=== PATIENT | female | born 1995 | race Caucasian/White ===

== ENCOUNTER 2017-04-21 23:48 | Emergency (ER) | payer OTHER ==
[~2017-04-21] VITALS: Ht 172.7 cm; Wt 98.9 kg
--- NOTE | ~2017-04-21 | EKG ---
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
[2017-04-21] MEDS ORDERED: PEPCID20 MG PO (23:58)
[2017-04-21] MEDS ORDERED: IBUPROFEN 200200 M1 PO (23:58)
[2017-04-21] MEDS ORDERED: PROBIOTIC1 EAC1 PO (23:58)
[2017-04-22] MEDS ORDERED: ALLERGY MEDICAT25 MG
[2017-04-22] MEDS ORDERED: HYDROXYZINE HCL25 M1 PO (02:02)
[2017-04-22 02:23] VITALS: BP 141/87
== END 2017-04-22 02:25 | disposition home or self-care (01) ==
LOC: ER 23:48
DX: F41.9 Anxiety disorder, unspecified (principal); Z88.1 Allergy status to other antibiotic agents